=== PATIENT | female | born 1960 | race Two or more races ===

== ENCOUNTER 2022-05-28 06:20 | Day surgery (SDC) | payer OTHER ==
[~2022-05-28] VITALS: Ht 160 cm; Wt 68.0 kg
== END 2022-05-28 13:25 | disposition home or self-care (01) ==
LOC: CIR.AMB 06:20
PROVIDERS: ATTEND Specialist
DX: D17.1 Benign lipomatous neoplasm of skin and subcutaneous tissue of trunk (principal); Z20.822 Contact with and (suspected) exposure to COVID-19

== ENCOUNTER 2024-09-26 10:18 | Outpatient (CLI) | payer OTHER ==
[~2024-09-26 10:18] MED LIST: DICLOFENAC POTA50 MG PO; VOLTAREN ARTHRI20 GM TOP
== END 2024-09-26 10:51 | disposition home or self-care (01) ==
LOC: MAMO-SONO 10:18
DX: Z12.31 Encounter for screening mammogram for malignant neoplasm of breast (principal); I70.0 Atherosclerosis of aorta; J45.909 Unspecified asthma, uncomplicated; N63.0 Unspecified lump in unspecified breast

== ENCOUNTER 2024-10-09 13:43 | Outpatient (CLI) | payer OTHER | END 2024-10-09 13:45 | disposition home or self-care (01) | LOC: NUCLEAR 13:43 | DX: M81.0 Age-related osteoporosis without current pathological fracture (principal) ==

== ENCOUNTER 2024-11-02 10:22 | Outpatient (CLI) | payer OTHER | END 2024-11-02 10:56 | disposition home or self-care (01) | LOC: SONOGRAMA 10:22 | PROVIDERS: ATTEND Internal Medicine | DX: E03.9 Hypothyroidism, unspecified (principal) ==

== ENCOUNTER → 2024-11-22 | Emergency (ER) | payer OTHER | END | disposition left against medical advice (07) | LOC: ER 17:31 | DX: Z53.21 Procedure and treatment not carried out due to patient leaving prior to being seen by health care provider (principal) ==

== ENCOUNTER 2024-11-23 12:43 | Emergency (ER) | payer OTHER ==
[~2024-11-23] VITALS: Ht 160 cm; Wt 74.8 kg
== END 2024-11-23 17:28 | disposition home or self-care (01) ==
LOC: ER 12:43
DX: S02.2XXA Fracture of nasal bones, initial encounter for closed fracture (principal); W18.39XA Other fall on same level, initial encounter; Y93.89 Activity, other specified; Y92.488 Other paved roadways as the place of occurrence of the external cause; Y99.9 Unspecified external cause status; Z88.0 Allergy status to penicillin

== ENCOUNTER 2024-11-29 08:30 | Outpatient (CLI) | payer OTHER | END 2024-11-29 08:31 | disposition home or self-care (01) | LOC: TOM 08:30 | PROVIDERS: ATTEND Otolaryngology Otology & Neurotology | DX: S02.2XXA Fracture of nasal bones, initial encounter for closed fracture (principal) ==

== ENCOUNTER 2025-02-26 14:31 | Emergency (ER) | payer OTHER ==
[~2025-02-26] VITALS: Ht 160 cm; Wt 72.6 kg
[2025-02-26] MEDS ORDERED: DEXAMETHASONE SODIUM PHOSPHATE 4 MG/ML VIAL IM STA (16:55)
[2025-02-26] MEDS ORDERED: KETOROLAC TROMETHAMINE 15 MG VIAL IM STA (16:55)
[2025-02-26] MEDS ORDERED: ORPHENADRINE CITRATE 30 MG/ML AMPUL IM STA (16:55)
[2025-02-26] MEDS ORDERED: NORFLEX100MG PO (17:09)
[2025-02-26] MEDS ORDERED: DICLOFENAC SODI75 MG PO (17:09)
== END 2025-02-26 18:32 | disposition home or self-care (01) ==
LOC: ER 14:31
DX: M54.50 Low back pain, unspecified (principal); Z88.0 Allergy status to penicillin